=== PATIENT | female | born 1945 | race Caucasian/White ===

== ENCOUNTER → 2017-02-14 | Outpatient (CLI) | payer MEDICARE ==
--- NOTE | ~2017-02-14 | MY29 ---
[facility] A Service of [facility] RADIOLOGY TEXT RESULTS PATIENT: MADINA NEWSOME LOCATION: [facility] : 41 UNIT #: [id number] AGE: [address]: Nyla Tineo MD SEX: F ORDER DR: [id number] [facility] [address] [place], [place] [address] [id number] O MR#: [id number] Acc #: [id number] NAME: MADINA NEWSOME : 1945 SEX: F STUDY DATE/TIME: 02/14/2017 11:38 UNIT: [facility] ROOM: STUDY DESCRIPTION: MY ELOISE SCREENING W/ CAD BILAT Attending Physician: Nyla Tineo M.D. Referring Physician: Nyla Tineo M.D. Ordering Physician: Nyla Tineo M.D. Primary Care Physician: Nyla Tineo M.D. MEDICAL IMAGING REPORT This report is preliminary unless electronic signature is present EXAM Bilateral digital screening mammogram with CAD. INDICATIONS Breast cancer screening. 71-year-old asymptomatic female who reports a mother with breast cancer. COMPARISON STUDIES June 22, 2015, January 26, 2014, January 13, 2013, September 27, 2011, March 15, 2011, May 29, 2010, May 18, 2010, April 19, 2009, December 03, 2007, July 06, 2006, June 14, 2005. FINDINGS There are scattered fibroglandular tissues. No suspicious findings are present. IMPRESSION No mammographic evidence of malignancy. Annual screening mammography and clinical breast exam are recommended. Patients over the age of 40 are entered into a reminder system with target due date for the next mammogram. A result letter will also be sent to the patient. BIRADS: 1 Negative. Dictated by... Julian Carpenter M.D. THIS IS AN ELECTRONICALLY VERIFIED REPORT Julian Carpenter M.D. at 02/15/2017 9:25 AM BLM/jt [facility] A Service [facility] RADIOLOGY TEXT RESULTS PATIENT: MADINA NEWSOME LOCATION: [facility] : 41 UNIT #: [id number] AGE: [address]: Nyla Tineo MD SEX: F ORDER DR: TD: 02/14/2017 18:48 JOB #: [id number] MEDICAL IMAGING REPORT Page 1 of 1 COPY
== END | disposition home or self-care (01) ==
LOC: CWCC 11:09
DX: Z12.31 Encounter for screening mammogram for malignant neoplasm of breast (principal); Z80.3 Family history of malignant neoplasm of breast
CPT/HCPCS: G0202